=== PATIENT | female | born 1930 | race Caucasian/White ===

== ENCOUNTER 2017-04-21 22:57 | Inpatient (IN) | payer MEDICARE, OTHER ==
[2017-04-21 23:52] LABS: BILIRUBIN,URINE NEGATIVE (NEG); COLOR,URINE YELLOW; GLUCOSE,URINE NEGATIVE (NEG); NITRITE,URINE NEGATIVE (NEG); PH,URINE 7.5; PROTEIN,URINE NEGATIVE (NEG-TRACE)
[2017-04-21 23:56] LABS: BACTERIA,URINE 0 /HPF (0-FEW); CLARITY,URINE CLEAR; SQUAMOUS EPITHELIAL CELL,UR FEW /LPF
[2017-04-21 23:57] LABS: WBC,URINE 0 /HPF (0-4)
[2017-04-22 00:04] LABS: ADD MAN DIFF? NO
[2017-04-22 00:13] LABS: BASO # 0.1 x10^3/uL (0.0-0.2); BASO % 1 % (0-3); EOS % 1 % (0-3); HEMATOCRIT 34.7 % (36.0-47.0); HEMOGLOBIN 11.8 g/dL (12.0-15.5); LYMPH # 1.4 x10^3/uL (1.0-4.8); LYMPH % 15 % (24-48); MEAN CORPUSCULAR HEMOGLOBIN 31 pg (25-35); MEAN CORPUSCULAR HGB CONC 34 g/dL (31-37); MEAN CORPUSCULAR VOLUME 91 fL (79-100); MONO # 1.6 x10^3/uL (0.0-1.1); MONO % 16 % (0-9); NEUT # 6.6 x10^3uL (1.8-7.7); NEUT % 68 % (31-73); PLATELET COUNT 174 x10^3/uL (140-400); RED BLOOD COUNT 3.83 x10^6/uL (3.50-5.40); RED CELL DISTRIBUTION WIDTH 14.3 % (11.5-14.5); WHITE BLOOD COUNT 9.7 x10^3/uL (4.0-11.0)
[2017-04-22 00:24] LABS: ANION GAP 8 (6-14); BLOOD UREA NITROGEN 13 mg/dL (7-20); BUN/CREATININE RATIO 13 (6-20); CALCIUM 8.5 mg/dL (8.5-10.1); CARBON DIOXIDE 28 mmol/L (21-32); CHLORIDE 93 mmol/L (98-107); GFR 52.3; GLUCOSE 143 mg/dL (70-99); SODIUM 129 mmol/L (136-145)
[2017-04-22 00:27] LABS: INFLUENZA A PATIENT NEGATIVE (NEGATIVE); INFLUENZA B PATIENT NEGATIVE (NEGATIVE); OBC FLU VALID
[2017-04-22 00:31] LABS: ALBUMIN 3.5 g/dL (3.4-5.0); ALBUMIN/GLOBULIN RATIO 0.9 (1.0-1.7); ALK PHOS 87 U/L (46-116); ALT (SGPT) 15 U/L (14-59); AST (SGOT) 17 U/L (15-37); TOTAL BILIRUBIN 0.4 mg/dL (0.2-1.0); TOTAL PROTEIN 7.2 g/dL (6.4-8.2)
[2017-04-22 01:23] LABS: INR 1.1 (0.8-1.1); PROTHROMBIN TIME PATIENT 13.8 SEC (11.7-14.0)
[2017-04-22] MEDS ORDERED: ONDANSETRON PF 4 MG/2 ML VIAL. IV (01:30)
[2017-04-22] MEDS ORDERED: HYDROmorphone 2 MG/ML VIAL IV (01:30)
[2017-04-22] MEDS: OSELTAMIVIR 30 MG CAPSULE PO ×3 (02:19→20:10)
[2017-04-22] MEDS: IV NORMAL SALINE 1000ML BAG 1,000 ML IV ×4 (02:19→16:45)
[2017-04-22] MEDS ORDERED: DICLOFENAC SODIUM 1% TOPICAL GEL 100GM TUBE. TP (08:00)
[2017-04-22] MEDS ORDERED: ONDANSETRON ODT 4 MG TAB.RAPDIS. PO ×2 (08:00)
[2017-04-22] MEDS ORDERED: tiZANidine 4 MG TABLET. PO (08:00)
[2017-04-22] MEDS ORDERED: POLYVINYL ALCOHOL 1.4% OPHTH SOLUTION 15ML BOTTLE. OU (08:00)
[2017-04-22] MEDS ORDERED: NYSTATIN TOPICAL POWDER 15GM BOTTLE. TP (08:00)
[2017-04-22] MEDS ORDERED: ACETAMINOPHEN 325 MG TABLET. PO (08:00)
[2017-04-22] MEDS ORDERED: IV NORMAL SALINE 1000ML BAG 1,000 ML IV (08:30)
[2017-04-22] MEDS ORDERED: OSELTAMIVIR 75 MG CAPSULE PO (09:00)
[2017-04-22] MEDS: ASPIRIN CHEWABLE 81 MG TABLET. PO (09:28)
[2017-04-22] MEDS: GABAPENTIN 400 MG CAPSULE. PO ×2 (09:28→20:09)
[2017-04-22] MEDS: MULTIVITAMIN I-VITE TABLET. PO (09:28)
[2017-04-22] MEDS: PANTOPRAZOLE 40 MG TABLET.DR. PO (09:28)
[2017-04-22] MEDS: fentaNYL 25MCG/HR PATCH 1 PATCH PATCH.TD72 TD (09:28)
[2017-04-22] MEDS: LISINOPRIL 5 MG TABLET. PO (09:28)
[2017-04-22] MEDS: guaiFENesin DM 200MG/20MG 10 ML SYRUP PO (09:29)
[2017-04-22] MEDS: cycloSPORINE 0.05% OPTH 1 DROP DROPERETTE OU ×2 (09:30→20:09)
[2017-04-22] MEDS: LIDOCAINE 5% TOPICAL OINTMENT 35GM TUBE. TP ×2 (09:34→20:08)
[2017-04-22] MEDS: DICLOFENAC SODIUM 1% TOPICAL GEL 100GM TUBE. TP (09:35)
[2017-04-22] MEDS: IPRATROPIUM BROMIDE 0.06% NASAL SPRAY 15ML BOTTLE. NS ×2 (09:38→20:10)
[2017-04-22] MEDS: tiZANidine 4 MG TABLET. PO (09:39)
[2017-04-22] MEDS: NYSTATIN TOPICAL POWDER 15GM BOTTLE. TP ×2 (09:44→20:08)
[2017-04-22] MEDS: INSULIN ASPART 300 UNITS/3 ML INSULN.PEN SQ ×2 (11:30→16:30)
[2017-04-22 11:33] LABS: ADD MAN DIFF? NO
[2017-04-22] MEDS: LACTOBACILLUS RHAMNOSUS GG 1 CAPSULE. PO ×2 (11:33→20:09)
[2017-04-22 11:37] LABS: BASO # 0.1 x10^3/uL (0.0-0.2); BASO % 1 % (0-3); EOS % 0 % (0-3); HEMATOCRIT 33.9 % (36.0-47.0); HEMOGLOBIN 11.4 g/dL (12.0-15.5); LYMPH # 1.7 x10^3/uL (1.0-4.8); LYMPH % 17 % (24-48); MEAN CORPUSCULAR HEMOGLOBIN 31 pg (25-35); MEAN CORPUSCULAR HGB CONC 34 g/dL (31-37); MEAN CORPUSCULAR VOLUME 91 fL (79-100); MONO # 1.4 x10^3/uL (0.0-1.1); MONO % 14 % (0-9); NEUT # 6.8 x10^3uL (1.8-7.7); NEUT % 68 % (31-73); PLATELET COUNT 183 x10^3/uL (140-400); RED BLOOD COUNT 3.72 x10^6/uL (3.50-5.40); RED CELL DISTRIBUTION WIDTH 14.3 % (11.5-14.5); WHITE BLOOD COUNT 9.9 x10^3/uL (4.0-11.0)
[2017-04-22 11:47] LABS: ANION GAP 10 (6-14); BLOOD UREA NITROGEN 12 mg/dL (7-20); CALCIUM 8.4 mg/dL (8.5-10.1); CARBON DIOXIDE 25 mmol/L (21-32); CHLORIDE 95 mmol/L (98-107); CREATININE 0.9 mg/dL (0.6-1.0); GFR 59.1; GLUCOSE 154 mg/dL (70-99); POTASSIUM 3.9 mmol/L (3.5-5.1); SODIUM 130 mmol/L (136-145)
[2017-04-22] MEDS: IPRATRPIUM/ALBUTEROL 0.5/2.5MG 3 ML NEBU. NEB ×3 (13:20→20:37)
[2017-04-22] MEDS: HYDROcodone/APAP 7.5/325MG 1 TAB TABLET PO (17:28)
[2017-04-22 17:44] LABS: POC GLUCOSE 124 mg/dL (70-99)
[2017-04-22] MEDS: SERTRALINE 50 MG TABLET. PO (20:09)
[2017-04-22] MEDS: LATANOPROST 0.005% OPHTH SOLUTION 2.5ML BOTTLE. OU (20:10)
[2017-04-22] MEDS: LORazepam 0.5 MG TABLET PO (20:10)
[2017-04-22 21:57] LABS: POC GLUCOSE 138 mg/dL (70-99)
[2017-04-23 00:12] LABS: MRSA BY PCR Negative (Negative)
[2017-04-23] MEDS: IV NORMAL SALINE 1000ML BAG 1,000 ML IV ×3 (00:45→16:45)
[2017-04-23 05:03] LABS: ADD MAN DIFF? NO
[2017-04-23 05:17] LABS: BASO # 0.1 x10^3/uL (0.0-0.2); BASO % 1 % (0-3); EOS # 0.1 x10^3/uL (0.0-0.7); EOS % 1 % (0-3); HEMATOCRIT 31.5 % (36.0-47.0); HEMOGLOBIN 10.5 g/dL (12.0-15.5); LYMPH # 2.3 x10^3/uL (1.0-4.8); LYMPH % 24 % (24-48); MEAN CORPUSCULAR HEMOGLOBIN 31 pg (25-35); MEAN CORPUSCULAR HGB CONC 33 g/dL (31-37); MEAN CORPUSCULAR VOLUME 91 fL (79-100); MONO # 1.3 x10^3/uL (0.0-1.1); MONO % 14 % (0-9); NEUT # 5.6 x10^3uL (1.8-7.7); NEUT % 60 % (31-73); PLATELET COUNT 158 x10^3/uL (140-400); RED BLOOD COUNT 3.45 x10^6/uL (3.50-5.40); RED CELL DISTRIBUTION WIDTH 14.2 % (11.5-14.5); WHITE BLOOD COUNT 9.4 x10^3/uL (4.0-11.0)
[2017-04-23 05:31] LABS: ANION GAP 8 (6-14); BLOOD UREA NITROGEN 17 mg/dL (7-20); CALCIUM 8.1 mg/dL (8.5-10.1); CARBON DIOXIDE 27 mmol/L (21-32); CHLORIDE 98 mmol/L (98-107); GFR 52.3; GLUCOSE 112 mg/dL (70-99); SODIUM 133 mmol/L (136-145)
[2017-04-23] MEDS: IPRATRPIUM/ALBUTEROL 0.5/2.5MG 3 ML NEBU. NEB ×4 (07:29→20:26)
[2017-04-23] MEDS: INSULIN ASPART 300 UNITS/3 ML INSULN.PEN SQ ×3 (07:30→16:30)
[2017-04-23] MEDS: ASPIRIN CHEWABLE 81 MG TABLET. PO (08:25)
[2017-04-23] MEDS: LISINOPRIL 5 MG TABLET. PO (08:25)
[2017-04-23] MEDS: LIDOCAINE 5% TOPICAL OINTMENT 35GM TUBE. TP ×2 (08:26→20:10)
[2017-04-23] MEDS: DICLOFENAC SODIUM 1% TOPICAL GEL 100GM TUBE. TP (08:26)
[2017-04-23] MEDS: LORazepam 0.5 MG TABLET PO ×2 (08:26→20:10)
[2017-04-23] MEDS: cycloSPORINE 0.05% OPTH 1 DROP DROPERETTE OU ×2 (08:27→20:10)
[2017-04-23] MEDS: LACTOBACILLUS RHAMNOSUS GG 1 CAPSULE. PO ×2 (08:27→20:09)
[2017-04-23] MEDS: GABAPENTIN 400 MG CAPSULE. PO ×2 (08:28→20:10)
[2017-04-23] MEDS: PANTOPRAZOLE 40 MG TABLET.DR. PO (08:28)
[2017-04-23] MEDS: CALCIUM CARBONATE 500 MG TAB.CHEW PO (08:28)
[2017-04-23] MEDS: IPRATROPIUM BROMIDE 0.06% NASAL SPRAY 15ML BOTTLE. NS ×2 (08:28→20:10)
[2017-04-23] MEDS: MULTIVITAMIN I-VITE TABLET. PO (08:28)
[2017-04-23] MEDS: HYDROcodone/APAP 7.5/325MG 1 TAB TABLET PO ×3 (08:29→21:43)
[2017-04-23] MEDS: guaiFENesin DM 200MG/20MG 10 ML SYRUP PO ×2 (08:29→23:42)
[2017-04-23] MEDS: POLYETHYLENE GLYCOL 3350 17 GM PACKET. PO (08:29)
[2017-04-23] MEDS: NYSTATIN TOPICAL POWDER 15GM BOTTLE. TP ×2 (08:30→20:10)
[2017-04-23] MEDS: OSELTAMIVIR 30 MG CAPSULE PO (08:31)
[2017-04-23 09:12] LABS: POC GLUCOSE 133 mg/dL (70-99)
[2017-04-23 12:12] LABS: POC GLUCOSE 161 mg/dL (70-99)
[2017-04-23 16:36] LABS: POC GLUCOSE 153 mg/dL (70-99)
[2017-04-23] MEDS: SERTRALINE 50 MG TABLET. PO (20:10)
[2017-04-23] MEDS: LATANOPROST 0.005% OPHTH SOLUTION 2.5ML BOTTLE. OU (20:10)
[2017-04-23 21:54] LABS: POC GLUCOSE 171 mg/dL (70-99)
[2017-04-24] MEDS: IV NORMAL SALINE 1000ML BAG 1,000 ML IV (00:45)
[2017-04-24 05:05] LABS: ADD MAN DIFF? NO
[2017-04-24 05:10] LABS: BASO % 0 % (0-3); EOS # 0.2 x10^3/uL (0.0-0.7); EOS % 2 % (0-3); HEMATOCRIT 31.7 % (36.0-47.0); HEMOGLOBIN 10.8 g/dL (12.0-15.5); LYMPH # 2.8 x10^3/uL (1.0-4.8); LYMPH % 25 % (24-48); MEAN CORPUSCULAR HEMOGLOBIN 31 pg (25-35); MEAN CORPUSCULAR HGB CONC 34 g/dL (31-37); MEAN CORPUSCULAR VOLUME 91 fL (79-100); MONO # 1.3 x10^3/uL (0.0-1.1); MONO % 12 % (0-9); NEUT # 6.6 x10^3uL (1.8-7.7); NEUT % 60 % (31-73); PLATELET COUNT 169 x10^3/uL (140-400); RED BLOOD COUNT 3.48 x10^6/uL (3.50-5.40); RED CELL DISTRIBUTION WIDTH 14.4 % (11.5-14.5)
[2017-04-24 05:31] LABS: ANION GAP 8 (6-14); BLOOD UREA NITROGEN 20 mg/dL (7-20); CALCIUM 8.6 mg/dL (8.5-10.1); CARBON DIOXIDE 25 mmol/L (21-32); CHLORIDE 96 mmol/L (98-107); CREATININE 1.1 mg/dL (0.6-1.0); GFR 46.9; GLUCOSE 113 mg/dL (70-99); MAGNESIUM 1.9 mg/dL (1.8-2.4); POTASSIUM 3.9 mmol/L (3.5-5.1); SODIUM 129 mmol/L (136-145)
[2017-04-24] MEDS: IPRATRPIUM/ALBUTEROL 0.5/2.5MG 3 ML NEBU. NEB ×4 (07:25→20:27)
[2017-04-24] MEDS: INSULIN ASPART 300 UNITS/3 ML INSULN.PEN SQ ×3 (07:30→16:30)
[2017-04-24 07:38] LABS: POC GLUCOSE 123 mg/dL (70-99)
[2017-04-24] MEDS: cycloSPORINE 0.05% OPTH 1 DROP DROPERETTE OU ×2 (09:00→21:10)
[2017-04-24] MEDS: MULTIVITAMIN I-VITE TABLET. PO (09:09)
[2017-04-24] MEDS: LACTOBACILLUS RHAMNOSUS GG 1 CAPSULE. PO ×2 (09:09→21:08)
[2017-04-24] MEDS: GABAPENTIN 400 MG CAPSULE. PO ×2 (09:10→21:08)
[2017-04-24] MEDS: PANTOPRAZOLE 40 MG TABLET.DR. PO (09:10)
[2017-04-24] MEDS: LORazepam 0.5 MG TABLET PO ×2 (09:10→18:28)
[2017-04-24] MEDS: NYSTATIN TOPICAL POWDER 15GM BOTTLE. TP ×2 (09:11→21:14)
[2017-04-24] MEDS: LISINOPRIL 5 MG TABLET. PO (09:11)
[2017-04-24] MEDS: ASPIRIN CHEWABLE 81 MG TABLET. PO (09:11)
[2017-04-24] MEDS: HYDROcodone/APAP 7.5/325MG 1 TAB TABLET PO ×2 (09:11→18:28)
[2017-04-24] MEDS: POLYETHYLENE GLYCOL 3350 17 GM PACKET. PO (09:11)
[2017-04-24] MEDS: IPRATROPIUM BROMIDE 0.06% NASAL SPRAY 15ML BOTTLE. NS ×2 (09:13→21:00)
[2017-04-24] MEDS: DICLOFENAC SODIUM 1% TOPICAL GEL 100GM TUBE. TP (09:14)
[2017-04-24] MEDS: LIDOCAINE 5% TOPICAL OINTMENT 35GM TUBE. TP ×2 (09:14→21:14)
[2017-04-24 10:56] LABS: URIC ACID 4.8 mg/dL (2.6-6.0)
[2017-04-24 11:09] LABS: FREE T4 0.94 ng/dL (0.76-1.46)
[2017-04-24 11:09] LABS: THYROID STIM HORMONE (TSH) 5.428 uIU/mL (0.358-3.74)
[2017-04-24 11:17] LABS: POC GLUCOSE 155 mg/dL (70-99)
[2017-04-24 12:31] LABS: SODIUM 134 mmol/L (136-145)
[2017-04-24 16:37] LABS: SODIUM 133 mmol/L (136-145)
[2017-04-24 16:40] LABS: POC GLUCOSE 84 mg/dL (70-99)
[2017-04-24 20:55] LABS: SODIUM 135 mmol/L (136-145)
[2017-04-24] MEDS: LATANOPROST 0.005% OPHTH SOLUTION 2.5ML BOTTLE. OU (21:00)
[2017-04-24] MEDS: SERTRALINE 50 MG TABLET. PO (21:09)
[2017-04-24 21:40] LABS: POC GLUCOSE 134 mg/dL (70-99)
[2017-04-25 04:10] LABS: ADD MAN DIFF? NO
[2017-04-25 04:32] LABS: BASO # 0.1 x10^3/uL (0.0-0.2); BASO % 1 % (0-3); EOS # 0.2 x10^3/uL (0.0-0.7); EOS % 2 % (0-3); HEMATOCRIT 31.4 % (36.0-47.0); HEMOGLOBIN 10.5 g/dL (12.0-15.5); LYMPH # 2.4 x10^3/uL (1.0-4.8); LYMPH % 21 % (24-48); MEAN CORPUSCULAR HEMOGLOBIN 31 pg (25-35); MEAN CORPUSCULAR HGB CONC 34 g/dL (31-37); MEAN CORPUSCULAR VOLUME 91 fL (79-100); MONO # 1.5 x10^3/uL (0.0-1.1); MONO % 13 % (0-9); NEUT # 7.1 x10^3uL (1.8-7.7); NEUT % 63 % (31-73); PLATELET COUNT 185 x10^3/uL (140-400); RED BLOOD COUNT 3.45 x10^6/uL (3.50-5.40); RED CELL DISTRIBUTION WIDTH 14.1 % (11.5-14.5); WHITE BLOOD COUNT 11.2 x10^3/uL (4.0-11.0)
[2017-04-25 04:54] LABS: ANION GAP 11 (6-14); BLOOD UREA NITROGEN 19 mg/dL (7-20); CALCIUM 8.5 mg/dL (8.5-10.1); CARBON DIOXIDE 26 mmol/L (21-32); CHLORIDE 100 mmol/L (98-107); CREATININE 0.9 mg/dL (0.6-1.0); GFR 59.1; GLUCOSE 115 mg/dL (70-99); POTASSIUM 4.1 mmol/L (3.5-5.1); SODIUM 137 mmol/L (136-145)
[2017-04-25] MEDS: INSULIN ASPART 300 UNITS/3 ML INSULN.PEN SQ ×2 (07:30→11:30)
[2017-04-25] MEDS: IPRATRPIUM/ALBUTEROL 0.5/2.5MG 3 ML NEBU. NEB ×2 (08:00→11:07)
[2017-04-25 08:33] LABS: SODIUM 138 mmol/L (136-145)
[2017-04-25] MEDS: LIDOCAINE 5% TOPICAL OINTMENT 35GM TUBE. TP (09:00)
[2017-04-25 09:19] LABS: POC GLUCOSE 130 mg/dL (70-99)
[2017-04-25] MEDS: LISINOPRIL 5 MG TABLET. PO (10:11)
[2017-04-25] MEDS: LACTOBACILLUS RHAMNOSUS GG 1 CAPSULE. PO (10:11)
[2017-04-25] MEDS: MULTIVITAMIN I-VITE TABLET. PO (10:11)
[2017-04-25] MEDS: GABAPENTIN 400 MG CAPSULE. PO (10:12)
[2017-04-25] MEDS: IPRATROPIUM BROMIDE 0.06% NASAL SPRAY 15ML BOTTLE. NS (10:12)
[2017-04-25] MEDS: cycloSPORINE 0.05% OPTH 1 DROP DROPERETTE OU (10:12)
[2017-04-25] MEDS: PANTOPRAZOLE 40 MG TABLET.DR. PO (10:12)
[2017-04-25] MEDS: ASPIRIN CHEWABLE 81 MG TABLET. PO (10:12)
[2017-04-25] MEDS: fentaNYL 25MCG/HR PATCH 1 PATCH PATCH.TD72 TD (10:14)
[2017-04-25] MEDS: NYSTATIN TOPICAL POWDER 15GM BOTTLE. TP (10:16)
[2017-04-25] MEDS: LORazepam 0.5 MG TABLET PO (10:29)
[2017-04-25] MEDS: HYDROcodone/APAP 7.5/325MG 1 TAB TABLET PO (10:31)
[2017-04-25 13:42] LABS: POC GLUCOSE 133 mg/dL (70-99)
== END 2017-04-25 13:45 | DRG 202 ==
LOC: ER 22:57 → ED HOLD 04-22 01:00 → 4 NORTH 04-22 03:55
DX: J20.9 Acute bronchitis, unspecified (principal); E87.1 Hypo-osmolality and hyponatremia; E11.21 Type 2 diabetes mellitus with diabetic nephropathy; E11.42 Type 2 diabetes mellitus with diabetic polyneuropathy; D64.9 Anemia, unspecified; S50.311A Abrasion of right elbow, initial encounter; W18.39XA Other fall on same level, initial encounter; J06.9 Acute upper respiratory infection, unspecified; E11.22 Type 2 diabetes mellitus with diabetic chronic kidney disease; F32.9 Major depressive disorder, single episode, unspecified; F41.9 Anxiety disorder, unspecified; I12.9 Hypertensive chronic kidney disease with stage 1 through stage 4 chronic kidney disease, or unspecified chronic kidney disease; K27.9 Peptic ulcer, site unspecified, unspecified as acute or chronic, without hemorrhage or perforation; G89.29 Other chronic pain; K57.90 Diverticulosis of intestine, part unspecified, without perforation or abscess without bleeding; K59.09 Other constipation; M13.0 Polyarthritis, unspecified; N18.3 Chronic kidney disease, stage 3 (moderate); S51.812A Laceration without foreign body of left forearm, initial encounter; Z87.11 Personal history of peptic ulcer disease; Z88.5 Allergy status to narcotic agent; Z90.710 Acquired absence of both cervix and uterus; Z87.81 Personal history of (healed) traumatic fracture; Y93.89 Activity, other specified; Y92.89 Other specified places as the place of occurrence of the external cause; Y99.8 Other external cause status
CPT/HCPCS: 36415; 71045; 76770; 80048; 80053; 81001; 82962; 83735; 84295; 84300; 84439; 84443; 84550; 85025; 85610; 87641; 87804; 87804-59; 94640; 94760; 97110-GO; 97110-GP; 97116-GP; 97162-GP; 97166-GO; 97535-GO; J1815; J1956; J7030; J7620

== ENCOUNTER 2017-05-12 15:22 | Inpatient (IN) | payer MEDICARE, OTHER ==
[2017-05-12 15:55] LABS: ADD MAN DIFF? NO
[2017-05-12 16:12] LABS: BASO % 0 % (0-3); EOS # 0.4 x10^3/uL (0.0-0.7); EOS % 4 % (0-3); HEMATOCRIT 35.1 % (36.0-47.0); HEMOGLOBIN 11.5 g/dL (12.0-15.5); LYMPH # 2.7 x10^3/uL (1.0-4.8); LYMPH % 25 % (24-48); MEAN CORPUSCULAR HEMOGLOBIN 29 pg (25-35); MEAN CORPUSCULAR HGB CONC 33 g/dL (31-37); MEAN CORPUSCULAR VOLUME 89 fL (79-100); MONO # 1.1 x10^3/uL (0.0-1.1); MONO % 10 % (0-9); NEUT # 6.6 x10^3uL (1.8-7.7); NEUT % 61 % (31-73); PLATELET COUNT 299 x10^3/uL (140-400); RED BLOOD COUNT 3.92 x10^6/uL (3.50-5.40); RED CELL DISTRIBUTION WIDTH 14.7 % (11.5-14.5); WHITE BLOOD COUNT 10.9 x10^3/uL (4.0-11.0)
[2017-05-12] MEDS: METOPROLOL TARTRATE 5 MG/5 ML VIAL. IVP ×2 (16:12→16:44)
[2017-05-12 16:16] LABS: ANION GAP 11 (6-14); BLOOD UREA NITROGEN 13 mg/dL (7-20); BUN/CREATININE RATIO 10 (6-20); CALCIUM 8.9 mg/dL (8.5-10.1); CARBON DIOXIDE 24 mmol/L (21-32); CHLORIDE 102 mmol/L (98-107); CREATININE 1.3 mg/dL (0.6-1.0); GFR 38.7; GLUCOSE 171 mg/dL (70-99); POTASSIUM 4.2 mmol/L (3.5-5.1); SODIUM 137 mmol/L (136-145)
[2017-05-12 16:24] LABS: ALBUMIN 3.4 g/dL (3.4-5.0); ALBUMIN/GLOBULIN RATIO 0.9 (1.0-1.7); ALK PHOS 103 U/L (46-116); ALT (SGPT) 14 U/L (14-59); AST (SGOT) 17 U/L (15-37); TOTAL BILIRUBIN 0.2 mg/dL (0.2-1.0); TOTAL PROTEIN 7.4 g/dL (6.4-8.2)
[2017-05-12 16:25] LABS: TROPONINI < 0.017 ng/mL (0.000-0.055)
[2017-05-12 16:27] LABS: NT-PRO BNP 1721 pg/mL (0-449)
[2017-05-12 16:36] LABS: BILIRUBIN,URINE NEGATIVE (NEG); CLARITY,URINE CLEAR; COLOR,URINE YELLOW; GLUCOSE,URINE NEGATIVE (NEG); NITRITE,URINE NEGATIVE (NEG); PROTEIN,URINE NEGATIVE (NEG-TRACE); UROBILINOGEN,URINE 0.2 mg/dL (0.2 mg/dL)
[2017-05-12 16:47] LABS: BACTERIA,URINE 0 /HPF (0-FEW); RBC,URINE OCC /HPF (0-2); WBC,URINE 0 /HPF (0-4)
[2017-05-12 16:48] LABS: SQUAMOUS EPITHELIAL CELL,UR FEW /LPF
[2017-05-12] MEDS: ESMOLOL 2500MG/250ML PREMIX 250 ML IV ×2 (17:09→23:06)
[2017-05-12] MEDS: LORazepam 1 MG TABLET PO (20:48)
[2017-05-12] MEDS ORDERED: CALCIUM CARBONATE 500 MG TAB.CHEW PO (22:30)
[2017-05-12] MEDS ORDERED: guaiFENesin DM 200MG/20MG 10 ML SYRUP PO (22:30)
[2017-05-12] MEDS ORDERED: ONDANSETRON ODT 4 MG TAB.RAPDIS. PO (22:30)
[2017-05-12] MEDS ORDERED: POLYETHYLENE GLYCOL 3350 17 GM PACKET. PO (22:30)
[2017-05-12] MEDS: GABAPENTIN 400 MG CAPSULE. PO (22:55)
[2017-05-12] MEDS: HYDROcodone/APAP 7.5/325MG 1 TAB TABLET PO (22:56)
[2017-05-12 23:09] LABS: TROPONINI < 0.017 ng/mL (0.000-0.055)
[2017-05-12] MEDS: LATANOPROST 0.005% OPHTH SOLUTION 2.5ML BOTTLE. OU (23:32)
[2017-05-13] MEDS: IV NORMAL SALINE 1000ML BAG 1,000 ML IV (00:50)
[2017-05-13] MEDS: DIGOXIN IV 500 MCG/2 ML AMPUL. IV ×2 (01:12→03:18)
[2017-05-13] MEDS: ACETAMINOPHEN 325 MG TABLET. PO (03:17)
[2017-05-13] MEDS: HYDROcodone/APAP 7.5/325MG 1 TAB TABLET PO (05:55)
[2017-05-13] MEDS: DICLOFENAC SODIUM 1% TOPICAL GEL 100GM TUBE. TP ×4 (09:00→21:04)
[2017-05-13] MEDS: IPRATROPIUM BROMIDE 0.06% NASAL SPRAY 15ML BOTTLE. NS ×2 (09:00→21:05)
[2017-05-13] MEDS: LISINOPRIL 5 MG TABLET. PO (09:00)
[2017-05-13] MEDS: MULTIVITAMIN I-VITE TABLET. PO (09:00)
[2017-05-13] MEDS: cycloSPORINE 0.05% OPTH 1 DROP DROPERETTE OU ×2 (09:23→21:04)
[2017-05-13] MEDS: GABAPENTIN 400 MG CAPSULE. PO ×2 (14:03→21:12)
[2017-05-13] MEDS: PANTOPRAZOLE 40 MG TABLET.DR. PO (14:03)
[2017-05-13] MEDS: ASPIRIN CHEWABLE 81 MG TABLET. PO (14:03)
[2017-05-13] MEDS: LORazepam 0.5 MG TABLET PO (14:11)
[2017-05-13 16:18] LABS: MRSA BY PCR Negative (Negative)
[2017-05-13] MEDS: RIVAROXABAN 15 MG TABLET. PO (18:15)
[2017-05-13] MEDS: LATANOPROST 0.005% OPHTH SOLUTION 2.5ML BOTTLE. OU (21:05)
[2017-05-14] MEDS: HYDROcodone/APAP 7.5/325MG 1 TAB TABLET PO ×2 (03:53→22:12)
[2017-05-14 06:11] LABS: ADD MAN DIFF? NO; BASO # 0.1 x10^3/uL (0.0-0.2); BASO % 1 % (0-3); EOS # 0.3 x10^3/uL (0.0-0.7); EOS % 3 % (0-3); HEMATOCRIT 34.8 % (36.0-47.0); HEMOGLOBIN 11.4 g/dL (12.0-15.5); LYMPH # 2.1 x10^3/uL (1.0-4.8); LYMPH % 19 % (24-48); MEAN CORPUSCULAR HEMOGLOBIN 30 pg (25-35); MEAN CORPUSCULAR HGB CONC 33 g/dL (31-37); MEAN CORPUSCULAR VOLUME 90 fL (79-100); MONO # 1.2 x10^3/uL (0.0-1.1); MONO % 11 % (0-9); NEUT # 7.4 x10^3uL (1.8-7.7); NEUT % 66 % (31-73); PLATELET COUNT 246 x10^3/uL (140-400); RED BLOOD COUNT 3.88 x10^6/uL (3.50-5.40); RED CELL DISTRIBUTION WIDTH 14.7 % (11.5-14.5); WHITE BLOOD COUNT 11.2 x10^3/uL (4.0-11.0)
[2017-05-14 07:06] LABS: THYROID STIM HORMONE (TSH) 2.369 uIU/mL (0.358-3.74)
[2017-05-14] MEDS: PANTOPRAZOLE 40 MG TABLET.DR. PO (07:48)
[2017-05-14] MEDS: ASPIRIN CHEWABLE 81 MG TABLET. PO (09:41)
[2017-05-14] MEDS: fentaNYL 25MCG/HR PATCH 1 PATCH PATCH.TD72 TD (09:41)
[2017-05-14] MEDS: GABAPENTIN 400 MG CAPSULE. PO ×2 (09:41→22:10)
[2017-05-14] MEDS: cycloSPORINE 0.05% OPTH 1 DROP DROPERETTE OU ×2 (09:41→22:07)
[2017-05-14] MEDS: IPRATROPIUM BROMIDE 0.06% NASAL SPRAY 15ML BOTTLE. NS ×2 (09:43→22:15)
[2017-05-14] MEDS: DICLOFENAC SODIUM 1% TOPICAL GEL 100GM TUBE. TP ×4 (09:43→22:16)
[2017-05-14] MEDS: MULTIVITAMIN I-VITE TABLET. PO (09:43)
[2017-05-14] MEDS: LISINOPRIL 5 MG TABLET. PO (09:43)
[2017-05-14] MEDS ORDERED: POLYVINYL ALCOHOL 1.4% OPHTH SOLUTION 15ML BOTTLE. OU (12:15)
[2017-05-14] MEDS: LORazepam 0.5 MG TABLET PO ×2 (14:33→22:10)
[2017-05-14] MEDS: RIVAROXABAN 15 MG TABLET. PO (17:19)
[2017-05-14] MEDS: LATANOPROST 0.005% OPHTH SOLUTION 2.5ML BOTTLE. OU (22:17)
[2017-05-15] MEDS: HYDROcodone/APAP 7.5/325MG 1 TAB TABLET PO (06:48)
[2017-05-15] MEDS: PANTOPRAZOLE 40 MG TABLET.DR. PO ×2 (06:51→08:45)
[2017-05-15] MEDS: IPRATROPIUM BROMIDE 0.06% NASAL SPRAY 15ML BOTTLE. NS (08:43)
[2017-05-15] MEDS: DICLOFENAC SODIUM 1% TOPICAL GEL 100GM TUBE. TP ×2 (08:44→12:29)
[2017-05-15] MEDS: ASPIRIN CHEWABLE 81 MG TABLET. PO (08:45)
[2017-05-15] MEDS: GABAPENTIN 400 MG CAPSULE. PO (08:45)
[2017-05-15] MEDS: MULTIVITAMIN I-VITE TABLET. PO (08:46)
[2017-05-15] MEDS: LISINOPRIL 5 MG TABLET. PO (08:49)
[2017-05-15] MEDS: cycloSPORINE 0.05% OPTH 1 DROP DROPERETTE OU (08:49)
[2017-05-15 10:10] LABS: ADD MAN DIFF? NO
[2017-05-15 10:14] LABS: BASO % 0 % (0-3); EOS # 0.4 x10^3/uL (0.0-0.7); EOS % 4 % (0-3); HEMATOCRIT 38.6 % (36.0-47.0); HEMOGLOBIN 12.5 g/dL (12.0-15.5); LYMPH # 3.2 x10^3/uL (1.0-4.8); LYMPH % 30 % (24-48); MEAN CORPUSCULAR HEMOGLOBIN 29 pg (25-35); MEAN CORPUSCULAR HGB CONC 32 g/dL (31-37); MEAN CORPUSCULAR VOLUME 90 fL (79-100); MONO # 1.3 x10^3/uL (0.0-1.1); MONO % 12 % (0-9); NEUT # 5.7 x10^3uL (1.8-7.7); NEUT % 54 % (31-73); PLATELET COUNT 247 x10^3/uL (140-400); RED BLOOD COUNT 4.28 x10^6/uL (3.50-5.40); RED CELL DISTRIBUTION WIDTH 15.2 % (11.5-14.5); WHITE BLOOD COUNT 10.7 x10^3/uL (4.0-11.0)
[2017-05-15 10:22] LABS: ANION GAP 9 (6-14); BLOOD UREA NITROGEN 16 mg/dL (7-20); CALCIUM 8.8 mg/dL (8.5-10.1); CARBON DIOXIDE 26 mmol/L (21-32); CHLORIDE 104 mmol/L (98-107); CREATININE 1.2 mg/dL (0.6-1.0); GFR 42.4; GLUCOSE 145 mg/dL (70-99); POTASSIUM 4.1 mmol/L (3.5-5.1); SODIUM 139 mmol/L (136-145)
[2017-05-15] MEDS: LORazepam 0.5 MG TABLET PO (12:29)
[2017-05-15] MEDS: ANTI-COAG MONITOR BY PHARMACY. MC (15:08)
[2017-05-22] MEDS ORDERED: SERTRALINE 50 MG TABLET. PO (23:00)
== END 2017-05-15 15:15 | DRG 309 ==
LOC: 2 SOUTH 05-14 11:58 → ER 15:22 → ED HOLD 16:32 → 2 NORTH 20:30 → 1 WEST ICU 21:37
DX: I48.0 Paroxysmal atrial fibrillation (principal); E87.1 Hypo-osmolality and hyponatremia; E11.21 Type 2 diabetes mellitus with diabetic nephropathy; N18.3 Chronic kidney disease, stage 3 (moderate); D72.829 Elevated white blood cell count, unspecified; K21.9 Gastro-esophageal reflux disease without esophagitis; E03.9 Hypothyroidism, unspecified; E11.22 Type 2 diabetes mellitus with diabetic chronic kidney disease; E78.5 Hyperlipidemia, unspecified; F32.9 Major depressive disorder, single episode, unspecified; F41.9 Anxiety disorder, unspecified; I12.9 Hypertensive chronic kidney disease with stage 1 through stage 4 chronic kidney disease, or unspecified chronic kidney disease; G89.29 Other chronic pain; K57.90 Diverticulosis of intestine, part unspecified, without perforation or abscess without bleeding; M54.9 Dorsalgia, unspecified; K59.00 Constipation, unspecified; Z82.49 Family history of ischemic heart disease and other diseases of the circulatory system; Z87.11 Personal history of peptic ulcer disease; Z90.710 Acquired absence of both cervix and uterus; Z91.81 History of falling; Z87.440 Personal history of urinary (tract) infections; Z87.81 Personal history of (healed) traumatic fracture; Z90.49 Acquired absence of other specified parts of digestive tract; Z88.8 Allergy status to other drugs, medicaments and biological substances
CPT/HCPCS: 36415; 71045; 80048; 80053; 81001; 83735; 83880; 84443; 84484; 85025; 85610; 87641; 93005; 93306; 93970; 96365; 96366; 96375; 96376; 97112-GP; 97116-GP; 97161-GP; 97166-GO; 97530-GP; 99291; 99291-25; J1160; J3490; J7030

== ENCOUNTER 2017-08-19 12:24 | Emergency (ER) | payer MEDICARE, OTHER ==
[2017-08-19] MEDS: oxyCODONE IR 5 MG TABLET PO (14:54)
== END 2017-08-19 16:00 | disposition home or self-care (01) ==
LOC: ER 12:24
DX: S09.90XA Unspecified injury of head, initial encounter (principal); M54.2 Cervicalgia; M25.552 Pain in left hip; F41.9 Anxiety disorder, unspecified; K21.9 Gastro-esophageal reflux disease without esophagitis; E78.00 Pure hypercholesterolemia, unspecified; I10 Essential (primary) hypertension; E03.9 Hypothyroidism, unspecified; G89.29 Other chronic pain; Z87.440 Personal history of urinary (tract) infections; Z86.2 Personal history of diseases of the blood and blood-forming organs and certain disorders involving the immune mechanism; Z88.4 Allergy status to anesthetic agent; Z88.5 Allergy status to narcotic agent; Z88.8 Allergy status to other drugs, medicaments and biological substances; W19.XXXA Unspecified fall, initial encounter; Y93.89 Activity, other specified; Y99.8 Other external cause status; Y92.89 Other specified places as the place of occurrence of the external cause
CPT/HCPCS: 70450; 72125; 73502; 99284-25

== ENCOUNTER 2017-09-15 08:35 | Emergency (ER) | payer MEDICARE, OTHER ==
[2017-09-15] MEDS: HYDROcodone/APAP 5/325MG 1 TAB TABLET PO (09:00)
[2017-09-15] MEDS: DIPHTH,PERTUSS(ACELL),TET TOX 0.5 ML DISP.SYRIN. VAX IM (09:00)
== END 2017-09-15 11:21 | disposition home or self-care (01) ==
LOC: ER 08:35
DX: S61.412A Laceration without foreign body of left hand, initial encounter (principal); I48.91 Unspecified atrial fibrillation; E78.00 Pure hypercholesterolemia, unspecified; E03.9 Hypothyroidism, unspecified; G89.29 Other chronic pain; I10 Essential (primary) hypertension; K21.9 Gastro-esophageal reflux disease without esophagitis; Z88.4 Allergy status to anesthetic agent; Z88.5 Allergy status to narcotic agent; Z88.8 Allergy status to other drugs, medicaments and biological substances; W18.11XA Fall from or off toilet without subsequent striking against object, initial encounter; Y93.89 Activity, other specified; Y99.8 Other external cause status; Y92.89 Other specified places as the place of occurrence of the external cause
CPT/HCPCS: 12001; 90471; 90715; 99284-25

== ENCOUNTER 2017-09-26 14:59 | Emergency (ER) | payer MEDICARE, OTHER ==
[2017-09-26 16:15] LABS: ADD MAN DIFF? NO
[2017-09-26 16:19] LABS: BASO # 0.1 x10^3/uL (0.0-0.2); BASO % 1 % (0-3); EOS # 0.1 x10^3/uL (0.0-0.7); EOS % 1 % (0-3); HEMATOCRIT 38.6 % (36.0-47.0); HEMOGLOBIN 12.8 g/dL (12.0-15.5); LYMPH # 2.5 x10^3/uL (1.0-4.8); LYMPH % 24 % (24-48); MEAN CORPUSCULAR HEMOGLOBIN 31 pg (25-35); MEAN CORPUSCULAR HGB CONC 33 g/dL (31-37); MEAN CORPUSCULAR VOLUME 95 fL (79-100); MONO # 0.9 x10^3/uL (0.0-1.1); MONO % 9 % (0-9); NEUT # 6.9 x10^3uL (1.8-7.7); NEUT % 65 % (31-73); PLATELET COUNT 237 x10^3/uL (140-400); RED BLOOD COUNT 4.08 x10^6/uL (3.50-5.40); RED CELL DISTRIBUTION WIDTH 16.7 % (11.5-14.5); WHITE BLOOD COUNT 10.6 x10^3/uL (4.0-11.0)
[2017-09-26 16:28] LABS: ANION GAP 8 (6-14); BLOOD UREA NITROGEN 12 mg/dL (7-20); BUN/CREATININE RATIO 13 (6-20); CALCIUM 8.9 mg/dL (8.5-10.1); CARBON DIOXIDE 28 mmol/L (21-32); CHLORIDE 100 mmol/L (98-107); CREATININE 0.9 mg/dL (0.6-1.0); GFR 59.1; GLUCOSE 122 mg/dL (70-99); SODIUM 136 mmol/L (136-145)
[2017-09-26 16:29] LABS: PARTIAL THROMBOPLASTIN TIME 42 SEC (24-38)
[2017-09-26 16:30] LABS: BILIRUBIN,URINE NEGATIVE (NEG); CLARITY,URINE CLEAR; COLOR,URINE YELLOW; GLUCOSE,URINE NEGATIVE (NEG); NITRITE,URINE NEGATIVE (NEG); PROTEIN,URINE NEGATIVE (NEG-TRACE); UROBILINOGEN,URINE 0.2 mg/dL (0.2 mg/dL)
[2017-09-26 16:36] LABS: ALBUMIN 3.9 g/dL (3.4-5.0); ALBUMIN/GLOBULIN RATIO 1.2 (1.0-1.7); ALK PHOS 119 U/L (46-116); ALT (SGPT) 16 U/L (14-59); AST (SGOT) 21 U/L (15-37); LIPASE 92 U/L (73-393); TOTAL BILIRUBIN 0.3 mg/dL (0.2-1.0); TOTAL PROTEIN 7.2 g/dL (6.4-8.2)
[2017-09-26 16:51] LABS: BACTERIA,URINE 0 /HPF (0-FEW); RBC,URINE OCC /HPF (0-2); SQUAMOUS EPITHELIAL CELL,UR FEW /LPF; WBC,URINE OCC /HPF (0-4)
== END 2017-09-26 18:38 | disposition home or self-care (01) ==
LOC: ER 14:59
DX: R10.9 Unspecified abdominal pain (principal); I48.91 Unspecified atrial fibrillation; F41.9 Anxiety disorder, unspecified; F32.9 Major depressive disorder, single episode, unspecified; K21.9 Gastro-esophageal reflux disease without esophagitis; E78.00 Pure hypercholesterolemia, unspecified; I10 Essential (primary) hypertension; E03.9 Hypothyroidism, unspecified; G89.29 Other chronic pain; Z87.440 Personal history of urinary (tract) infections; Z88.8 Allergy status to other drugs, medicaments and biological substances; Z88.5 Allergy status to narcotic agent; Z88.4 Allergy status to anesthetic agent
CPT/HCPCS: 36415; 74176; 80053; 81001; 83690; 83735; 85025; 85610; 85730; 87086; 99285-25

== ENCOUNTER 2018-09-24 15:00 | Emergency (ER) | payer MEDICARE, OTHER ==
[2018-09-03 11:03] VITALS: BP 142/64
[~2018-09-24] VITALS: Ht 165.1 cm; Wt 62.6 kg
[~2018-09-24 15:00] MED LIST: ACET325T9 PO; ASPI-630 PO; ATROVENT HFA12.9 GM IH; BIMA2.5D EACHEYE; BUPR150T8 PO; CALC300T5 PO; CEFP200T PO; CYCL1DRO EACHEYE; DICL100G18 TP; DILT240C2 PO; DILT360C PO; Diltiazem Hcl PO; FENT1PAT15 TD; FENT1PAT17 TD; GABA-689 PO; GABA300C18 PO; GUAI-108 PO; GUAI5SYR PO; HYDR-2765 PO; Hydrocodone/Acetaminophen PO; INSU100I17 SQ; IPRA15SP NS; IPRA3AMP29 NEB; LACT1CAP19 PO; LATA2.5D3 EACHEYE; LEVO250T25 PO; LEVO500T59 PO; LIDO30CR6 TP; LINA5TAB PO; LISI-338 PO; LORA0.5T PO; NYST15CR TP; ONDA4TAB12 PO; PANT40TA77 PO; POLY119P19 PO; POLY15DR27 OU; PROP225C2 PO; RIVA15TA PO; SERT100T PO; SERT100T8 PO; SERT50TA PO; TAMS0.4C97 PO; TIZA4TAB PO; VIT1TABL8 PO
--- NOTE | 2018-09-24 15:58 | RAD ---
Examination: HUMERUS RIGHT History: Bruise Comparison/Correlation: None Findings: Two-view right humerus x-ray exam was performed. No fracture or bony destruction. No radiopaque foreign body. Osteopenia noted. Impression: No acute process. Electronically signed by: Delroy Burris MD (09/24/2018 3:56 PM) [id number]
[2018-09-24 16:10] LABS: BASO # 0.2 x10^3/uL (0.0-0.2); BASO % 1 % (0-3); EOS # 0.2 x10^3/uL (0.0-0.7); EOS % 2 % (0-3); HEMOGLOBIN 12.6 g/dL (12.0-15.5); LYMPH # 2.9 x10^3/uL (1.0-4.8); LYMPH % 23 % (24-48); MEAN CORPUSCULAR HEMOGLOBIN 31 pg (25-35); MEAN CORPUSCULAR HGB CONC 34 g/dL (31-37); MEAN CORPUSCULAR VOLUME 92 fL (79-100); MONO # 1.2 x10^3/uL (0.0-1.1); MONO % 9 % (0-9); NEUT # 8.3 x10^3/uL (1.8-7.7); NEUT % 65 % (31-73); PLATELET COUNT 197 x10^3/uL (140-400); RED BLOOD COUNT 4.01 x10^6/uL (3.50-5.40); RED CELL DISTRIBUTION WIDTH 14.1 % (11.5-14.5); WHITE BLOOD COUNT 12.7 x10^3/uL (4.0-11.0)
[2018-09-24 16:23] LABS: PROTHROMBIN TIME PATIENT 19.6 SEC (11.7-14.0)
[2018-09-24 16:28] LABS: CALCIUM 8.7 mg/dL (8.5-10.1); GFR 52.2; POTASSIUM 4.6 mmol/L (3.5-5.1)
--- NOTE | 2018-09-24 17:14 | PHYS DOC ---
Past Medical History Past Medical History: A-Fib, Anemia, Anxiety, Constipation, Depression, Diverticulitis, GERD, Glaucoma, High Cholesterol, Hypertension, Hypothyroid, UTI, Other Additional Past Medical Histor: chronic back pain, dry eye, arthropathy, NEUROPATHY, GLAUCOMA Past Surgical History: Other Additional Past Surgical Histo: back x 2 Alcohol Use: None Drug Use: None Adult General Chief Complaint Chief Complaint: UPPER EXTREMITY INJURY HPI HPI Patient is a 88 year old female with history of A. fib on Xarelto, hypertension, high cholesterol, among other illnesses who presents to the ED today complaining of a bruise on the right biceps region that she noted 2 days ago. [facility]. Denies any known injury. Review of Systems Review of Systems Constitutional: Denies fever or chills [] Eyes: Denies change in visual acuity, redness, or eye pain [] HENT: Denies nasal congestion or sore throat [] Respiratory: Denies cough or shortness of breath [] Cardiovascular: No additional information not addressed in HPI [] GI: Denies abdominal pain, nausea, vomiting, bloody stools or diarrhea [] : Denies dysuria or hematuria [] Musculoskeletal: Denies back pain or joint pain [] Integument: Bruising to the right biceps Neurologic: Denies headache, focal weakness or sensory changes [] All other systems were reviewed and found to be within normal limits, except as documented in this note. Allergies Allergies Allergies Coded Allergies Type Severity Reaction Last Updated Verified buspirone Allergy Intermediate Unknown 05/12/17 Yes lidocaine Allergy Intermediate Unknown 05/12/17 Yes morphine Allergy Intermediate 05/11/15 Yes nitroglycerin Allergy Intermediate 05/11/15 Yes Physical Exam Physical Exam Constitutional: Well developed, well nourished, no acute distress, non-toxic appearance. [] HENT: Normocephalic, atraumatic, bilateral external ears normal, oropharynx moist, no oral exudates, nose normal. [] Eyes: PERRLA, EOMI, conjunctiva normal, no discharge. [] Neck: Normal range of motion, no tenderness, supple, no stridor. [] Cardiovascular:Heart rate regular rhythm, no murmur [] Lungs & Thorax: Bilateral breath sounds clear to auscultation [] Abdomen: Bowel sounds normal, soft, no tenderness, no masses, no pulsatile masses. [] Skin: Warm, dry, a bruise approximately 6 x 4 cm noted on the right biceps. Bruising also noted on the left dorsal hand. Neurovascular exam is intact bilateral upper extremities. Back: No tenderness, no CVA tenderness. [] Extremities: No tenderness, no cyanosis, no clubbing, ROM intact, no edema. [] Neurologic: Alert and oriented X 3, normal motor function, normal sensory function, no focal deficits noted. [] Psychologic: Affect normal, judgement normal, mood normal. [] Current Patient Data Vital Signs Vital Signs Date Time Temp Pulse Resp B/P (MAP) Pulse Ox O2 Delivery O2 Flow Rate FiO2 09/24/18 15:21 98.3 80 18 172/68 (102) 98 Room Air 98.3 Lab Values Laboratory Tests Test 09/24/18 15:53 White Blood Count 12.7 x10^3/uL (4.0-11.0) H Red Blood Count 4.01 x10^6/uL (3.50-5.40) Hemoglobin 12.6 g/dL (12.0-15.5) Hematocrit 37.0 % (36.0-47.0) Mean Corpuscular Volume 92 fL (79-100) Mean Corpuscular Hemoglobin 31 pg (25-35) Mean Corpuscular Hemoglobin Concent 34 g/dL (31-37) Red Cell Distribution Width 14.1 % (11.5-14.5) Platelet Count 197 x10^3/uL (140-400) Neutrophils (%) (Auto) 65 % (31-73) Lymphocytes (%) (Auto) 23 % (24-48) L Monocytes (%) (Auto) 9 % (0-9) Eosinophils (%) (Auto) 2 % (0-3) Basophils (%) (Auto) 1 % (0-3) Neutrophils # (Auto) 8.3 x10^3/uL (1.8-7.7) H Lymphocytes # (Auto) 2.9 x10^3/uL (1.0-4.8) Monocytes # (Auto) 1.2 x10^3/uL (0.0-1.1) H Eosinophils # (Auto) 0.2 x10^3/uL (0.0-0.7) Basophils # (Auto) 0.2 x10^3/uL (0.0-0.2) Prothrombin Time 19.6 SEC (11.7-14.0) H Prothrombin Time INR 1.7 (0.8-1.1) H PTT 61 SEC (24-38) H Sodium Level 130 mmol/L (136-145) L Potassium Level 4.6 mmol/L (3.5-5.1) Chloride Level 93 mmol/L (98-107) L Carbon Dioxide Level 26 mmol/L (21-32) Anion Gap 11 (6-14) Blood Urea Nitrogen 16 mg/dL (7-20) Creatinine 1.0 mg/dL (0.6-1.0) Estimated GFR (Cockcroft-Gault) 52.2 Glucose Level 137 mg/dL (70-99) H Calcium Level 8.7 mg/dL (8.5-10.1) Laboratory Tests 09/24/18 15:53 Laboratory Tests 09/24/18 15:53 EKG EKG [] Radiology/Procedures Radiology/Procedures []PROCEDURE: HUMERUS RIGHT Examination: HUMERUS RIGHT History: Bruise Comparison/Correlation: None Findings: Two-view right humerus x-ray exam was performed. No fracture or bony destruction. No radiopaque foreign body. Osteopenia noted. Impression: No acute process. Electronically signed by: Teresa Malone MD (09/24/2018 3:56 PM) [id number] DICTATED and SIGNED BY: TERESA MALONE MD DATE: 09/24/18 1556 Course & Med Decision Making Course & Med Decision Making Pertinent Labs and Imaging studies reviewed. (See chart for details) This is a 88-year-old female patient presented [facility] the ED today from a jail with a bruise on the right biceps that began 2 days ago, no known injury. Patient on Xarelto. Right upper extremity x-rays are negative. INR 1.7, PT 19.6. Patient was discharged back to jail. Instructed jail to monitor this area and make sure he doesn't get worse. Follow-up with primary care doctor in 1-2 weeks. Dragon Disclaimer Dragon Disclaimer This electronic medical record was generated, in whole or in part, using a voice recognition dictation system. Departure Departure Impression: Primary Impression: Superficial bruising of upper limb Disposition: 01 HOME, SELF-CARE Condition: STABLE Referrals: MARTHA BROWER MD (PCP) Follow up in one week Patient Instructions: Contusion, [id number] Additional Instructions: You were seen for a bruise on the right upper extremity. Please follow-up with your own primary care doctor in 1-2 weeks. Try to ice and elevate the affected area. Your sodium was 130. Try to increase your dietary sodium intake for a few days. Problem Qualifiers Primary Impression: Superficial bruising of upper limb Encounter type: initial encounter Laterality: right Qualified Codes: S40.021A - Contusion of right upper arm, initial encounter JO DE LA CRUZ [employer] Sep 24, 2018 17:14
== END 2018-09-24 17:59 | disposition home or self-care (01) ==
LOC: ER 15:00
DX: S40.021A Contusion of right upper arm, initial encounter (principal); I48.91 Unspecified atrial fibrillation; E78.00 Pure hypercholesterolemia, unspecified; I10 Essential (primary) hypertension; K21.9 Gastro-esophageal reflux disease without esophagitis; E03.9 Hypothyroidism, unspecified; G89.29 Other chronic pain; Z88.4 Allergy status to anesthetic agent; Z88.5 Allergy status to narcotic agent; Z88.8 Allergy status to other drugs, medicaments and biological substances; X58.XXXA Exposure to other specified factors, initial encounter; Y93.89 Activity, other specified; Y92.89 Other specified places as the place of occurrence of the external cause; Y99.8 Other external cause status
CPT/HCPCS: 36415; 73060; 80048; 85025; 85610; 85730; 99285-25

== ENCOUNTER → 2018-09-26 | Outpatient (CLI) | payer MEDICARE, OTHER ==
[2018-09-24 15:21] VITALS: BP 172/68
--- NOTE | 2018-09-26 15:54 | KCIC ---
Ultrasound of the left biceps region HISTORY: Swelling and lump in the biceps region for 2 months. Rotator cuff tear. TECHNIQUE: Targeted ultrasound is performed in the area of concern. FINDINGS: As per the scanning technologist, the biceps demonstrates somewhat hyperechoic and heterogeneous appearance. This could be due to muscle atrophy or muscle edema. No discrete mass or hypervascularity is identified. IMPRESSION: Biceps muscle appears somewhat hyperechoic and heterogeneous, uncertain significance. Could indicate muscle atrophy, edema or injury. No organized fluid collection is seen. MR could further evaluate. Electronically signed by: Fadi Cartagena MD (09/26/2018 3:51 PM) [facility]
== END | disposition home or self-care (01) ==
LOC: KCIC US 14:38
PROVIDERS: ATTEND Internal Medicine
DX: M79.89 Other specified soft tissue disorders (principal); R22.31 Localized swelling, mass and lump, right upper limb
CPT/HCPCS: 76881

== ENCOUNTER 2018-10-14 15:21 | Emergency (ER) | payer MEDICARE, OTHER ==
[~2018-10-14] VITALS: Ht 157.5 cm; Wt 62.6 kg
[~2018-10-14 15:21] MED LIST changes: -TIZA4TAB PO; +TIZA4TAB2 PO
--- NOTE | 2018-10-14 16:12 | PHYS DOC ---
Past Medical History Past Medical History: A-Fib, Anemia, Anxiety, Constipation, Depression, Diverticulitis, GERD, Glaucoma, High Cholesterol, Hypertension, Hypothyroid, UTI, Other Additional Past Medical Histor: chronic back pain, dry eye, arthropathy, NEUROPATHY, GLAUCOMA Past Surgical History: Other Additional Past Surgical Histo: back x 2 Alcohol Use: None Drug Use: None Adult General Chief Complaint Chief Complaint: LOWER EXT PAIN HPI HPI Patient is a 88 year old female who presents to the ER via EMS, from the long term, with complaints of a wound to the plantar surface of her right 4th toe. Pt states she does not know how the wound developed she just noticed it today when she was cleaning her foot off. Pt denies any known injury. She denies any pain at this time. ROS Pt denies any fever, cough, shortness of breath, chest pain, abdominal pain, nausea, vomiting, or diarrhea. She states there was pus drainage from her toe when she noticed the wound. She denies any decrease in sensation, she has a hx of neuropathy. All other ROS is neg unless otherwise noted in HPI. Review of Systems Review of Systems See Above Current Medications Current Medications Current Medications Medications (Trade) Dose Ordered Sig/Sasha Start Time Stop Time Status Last Admin Dose Admin Bacitracin 1 pino 1X ONCE 10/14/18 19:30 10/14/18 19:31 Allergies Allergies Allergies Coded Allergies Type Severity Reaction Last Updated Verified buspirone Allergy Intermediate Unknown 05/12/17 Yes lidocaine Allergy Intermediate Unknown 05/12/17 Yes morphine Allergy Intermediate 05/11/15 Yes nitroglycerin Allergy Intermediate 05/11/15 Yes Physical Exam Physical Exam See Above Constitutional: Well developed, well nourished, no acute distress, non-toxic appearance. [] HENT: Normocephalic, atraumatic, bilateral external ears normal, oropharynx moist, no oral exudates, nose normal. [] Eyes: conjunctiva normal, no discharge. [] Neck: Normal range of motion, no stridor. [] Cardiovascular:Heart rate regular irregular rhythm Lungs & Thorax: Respirations even and unlabored, no retractions, no respiratory distress Skin: Warm, dry; 3 cm diameter erythremic area noted to plantar surface of R 4th toe with 0.75 cm open area without any active bleeding or drainage noted. Extremities: No tenderness, no cyanosis, no clubbing, ROM intact, no edema. [] Neurologic: Alert and oriented X 3, no focal deficits noted. [] Psychologic: Affect normal, judgement normal, mood normal. [] Current Patient Data Vital Signs Vital Signs Date Time Temp Pulse Resp B/P (MAP) Pulse Ox O2 Delivery O2 Flow Rate FiO2 10/14/18 15:41 98.5 89 18 161/111 (128) 98 Room Air 98.5 Lab Values Laboratory Tests Test 10/14/18 16:45 White Blood Count 13.7 x10^3/uL (4.0-11.0) H Red Blood Count 3.85 x10^6/uL (3.50-5.40) Hemoglobin 12.3 g/dL (12.0-15.5) Hematocrit 36.0 % (36.0-47.0) Mean Corpuscular Volume 94 fL (79-100) Mean Corpuscular Hemoglobin 32 pg (25-35) Mean Corpuscular Hemoglobin Concent 34 g/dL (31-37) Red Cell Distribution Width 14.3 % (11.5-14.5) Platelet Count 261 x10^3/uL (140-400) Neutrophils (%) (Auto) 61 % (31-73) Lymphocytes (%) (Auto) 25 % (24-48) Monocytes (%) (Auto) 11 % (0-9) H Eosinophils (%) (Auto) 2 % (0-3) Basophils (%) (Auto) 1 % (0-3) Neutrophils # (Auto) 8.3 x10^3/uL (1.8-7.7) H Lymphocytes # (Auto) 3.5 x10^3/uL (1.0-4.8) Monocytes # (Auto) 1.5 x10^3/uL (0.0-1.1) H Eosinophils # (Auto) 0.3 x10^3/uL (0.0-0.7) Basophils # (Auto) 0.2 x10^3/uL (0.0-0.2) Prothrombin Time 17.4 SEC (11.7-14.0) H Prothrombin Time INR 1.5 (0.8-1.1) H Sodium Level 136 mmol/L (136-145) Potassium Level 4.4 mmol/L (3.5-5.1) Chloride Level 99 mmol/L (98-107) Carbon Dioxide Level 29 mmol/L (21-32) Anion Gap 8 (6-14) Blood Urea Nitrogen 14 mg/dL (7-20) Creatinine 1.0 mg/dL (0.6-1.0) Estimated GFR (Cockcroft-Gault) 52.2 BUN/Creatinine Ratio 14 (6-20) Glucose Level 115 mg/dL (70-99) H Calcium Level 8.8 mg/dL (8.5-10.1) Total Bilirubin 0.2 mg/dL (0.2-1.0) Aspartate Amino Transferase (AST) 15 U/L (15-37) Alanine Aminotransferase (ALT) 17 U/L (14-59) Alkaline Phosphatase 103 U/L (46-116) Total Protein 7.9 g/dL (6.4-8.2) Albumin 3.5 g/dL (3.4-5.0) Albumin/Globulin Ratio 0.8 (1.0-1.7) L Laboratory Tests 10/14/18 16:45 Laboratory Tests 10/14/18 16:45 EKG EKG 1533- Afib with prolonged QT, rate 76, no STEMI read by Dr. Bueno[] Radiology/Procedures Radiology/Procedures PROCEDURE: FOOT RIGHT 3V Exam: Right foot 3 views INDICATION: Fourth toe redness, swelling, open ulcer TECHNIQUE: Frontal, lateral and oblique views of the right foot. Comparisons: None FINDINGS: Diffuse osteopenia. No acute fracture is identified. Soft tissue swelling noted predominantly at the forefoot particularly at the fourth digit. No radiopaque foreign body is identified. 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 IMPRESSION: Soft tissue swelling of the forefoot without radiopaque foreign body or underlying osseous abnormality identified.[] Course & Med Decision Making Course & Med Decision Making Pertinent Labs and Imaging studies reviewed. (See chart for details) dx: open R foot wound R foot xray negative for any acute findings. CBC revealed WBC 13.7, PT 17.4, INR 1.5, CMP glucose 115 otherwise unremarkable. 1812- Spoke with Dr. Brower who recommends keflex 500 mg tid x7 days and bacitracin x7 days. Follow up with him in office on Monday. [] Dragon Disclaimer Dragon Disclaimer This electronic medical record was generated, in whole or in part, using a voice recognition dictation system. Departure Departure Impression: Primary Impression: Unspecified open wound, right foot, initial encounter Disposition: HOME, SELF-CARE Condition: STABLE Referrals: MARTHA BROWER MD (PCP) Patient Instructions: Wound Care, [id number] Additional Instructions: Fill the prescriptions and take as directed. Cleanse the wound and apply bacitracin and clean bandage three times a day and as needed. Follow up with Dr. Brower on Monday, return to the ER sooner if your symptoms worsen. Scripts Bacitracin (Bacitracin) 28.4 Gm Oint...g. 1 APPLIC TP TID for 7 Days, #1 TUBE 0 Refills Prov: YULIA LEY APRN 10/14/18 Cephalexin (CEPHALEXIN) 500 Mg Capsule 1 CAP PO TID for 7 Days, #21 CAP 0 Refills Prov: YULIA LEY APRN 10/14/18 YULIA LEY APRN Oct 14, 2018 16:12
--- NOTE | 2018-10-14 16:18 | RAD ---
Exam: Right foot 3 views INDICATION: Fourth toe redness, swelling, open ulcer TECHNIQUE: Frontal, lateral and oblique views of the right foot. Comparisons: None FINDINGS: Diffuse osteopenia. No acute fracture is identified. Soft tissue swelling noted predominantly at the forefoot particularly at the fourth digit. No radiopaque foreign body is identified. 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 IMPRESSION: Soft tissue swelling of the forefoot without radiopaque foreign body or underlying osseous abnormality identified. Electronically signed by: Meredith Braswell MD (10/14/2018 4:15 PM) [id number]
[2018-10-14 17:03] LABS: BASO # 0.2 x10^3/uL (0.0-0.2); BASO % 1 % (0-3); EOS # 0.3 x10^3/uL (0.0-0.7); EOS % 2 % (0-3); HEMOGLOBIN 12.3 g/dL (12.0-15.5); LYMPH # 3.5 x10^3/uL (1.0-4.8); LYMPH % 25 % (24-48); MEAN CORPUSCULAR HEMOGLOBIN 32 pg (25-35); MEAN CORPUSCULAR HGB CONC 34 g/dL (31-37); MEAN CORPUSCULAR VOLUME 94 fL (79-100); MONO # 1.5 x10^3/uL (0.0-1.1); MONO % 11 % (0-9); NEUT # 8.3 x10^3/uL (1.8-7.7); NEUT % 61 % (31-73); PLATELET COUNT 261 x10^3/uL (140-400); RED BLOOD COUNT 3.85 x10^6/uL (3.50-5.40); RED CELL DISTRIBUTION WIDTH 14.3 % (11.5-14.5); WHITE BLOOD COUNT 13.7 x10^3/uL (4.0-11.0)
[2018-10-14 17:13] LABS: PROTHROMBIN TIME PATIENT 17.4 SEC (11.7-14.0)
[2018-10-14 17:23] LABS: CALCIUM 8.8 mg/dL (8.5-10.1); GFR 52.2; POTASSIUM 4.4 mmol/L (3.5-5.1)
[2018-10-14 17:29] LABS: ALBUMIN 3.5 g/dL (3.4-5.0); ALBUMIN/GLOBULIN RATIO 0.8 (1.0-1.7); TOTAL BILIRUBIN 0.2 mg/dL (0.2-1.0); TOTAL PROTEIN 7.9 g/dL (6.4-8.2)
[2018-10-14] MEDS ORDERED: BACI28.43 TP (18:58)
[2018-10-14] MEDS ORDERED: CEPH500C PO (18:58)
[2018-10-14] MEDS ORDERED: BACITRACIN TOPICAL OINT 14GM TUBE. TP ONE (19:30)
[2018-10-14 19:55] VITALS: BP 164/69
--- NOTE | 2018-10-15 06:44 | EKG ---
[facility] [address] [place] [id number] Test Date: 2018-10-14 Test Time: 15:33:20 Pat Name: MERARI SCHWARTZ Department: Room: Gender: F [employer]: : [id number] Requested By: YULIA LEY Order Number: [id number] Reading MD: Measurements Intervals [place] Rate: 76 P: CT: QRS: -8 QRSD: 88 T: 29 QT: 436 QTc: 495 Interpretive Statements ATRIAL FIBRILLATION LEFTWARD AXIS PROLONGED QT ABNORMAL ECG No previous ECG available for comparison
== END 2018-10-14 20:10 | disposition home or self-care (01) ==
LOC: ER 15:21
DX: S91.301A Unspecified open wound, right foot, initial encounter (principal); I48.91 Unspecified atrial fibrillation; K21.9 Gastro-esophageal reflux disease without esophagitis; E78.00 Pure hypercholesterolemia, unspecified; I10 Essential (primary) hypertension; E03.9 Hypothyroidism, unspecified; G89.29 Other chronic pain; Z88.4 Allergy status to anesthetic agent; Z88.5 Allergy status to narcotic agent; Z88.8 Allergy status to other drugs, medicaments and biological substances; X58.XXXA Exposure to other specified factors, initial encounter; Y93.89 Activity, other specified; Y92.89 Other specified places as the place of occurrence of the external cause; Y99.8 Other external cause status
CPT/HCPCS: 36415; 73630; 80053; 82962; 85025; 85610; 93005; 99285-25